=== PATIENT | male | born 1975 | race African-American/Black ===

== ENCOUNTER 2022-07-10 11:22 | Emergency (ER) | payer BC ==
[~2022-07-10] VITALS: Ht 175.3 cm; Wt 92.3 kg
[2022-07-10 11:32] VITALS: BP 179/110
[2022-07-10] MEDS ORDERED: FLUT16SP2 BOTHNARES (13:56)
[2022-07-10] MEDS ORDERED: AZIT250T PO (13:56)
[2022-07-10] MEDS ORDERED: CETI10TA15 PO (13:56)
== END 2022-07-10 14:19 | disposition home or self-care (01) ==
LOC: ER 11:23
DX: J32.9 Chronic sinusitis, unspecified (principal); Z72.89 Other problems related to lifestyle
CPT/HCPCS: 70486; 99284